=== PATIENT | female | born 1990 | race Two or more races ===

== ENCOUNTER 2017-07-14 19:26 | Emergency (ER) | payer MEDICAID ==
[~2017-07-14] VITALS: Ht 185.4 cm; Wt 111.4 kg
[~2017-07-14 19:26] MED LIST: ACET325T14 PO
[2017-07-14 19:37] VITALS: BP 128/88
== END 2017-07-14 20:19 | disposition home or self-care (01) ==
LOC: ED 20:10
DX: B34.9 Viral infection, unspecified (principal); F17.210 Nicotine dependence, cigarettes, uncomplicated
CPT/HCPCS: 71046; 99284

== ENCOUNTER 2017-08-23 15:20 | Emergency (ER) | payer MEDICAID ==
[~2017-08-23] VITALS: Ht 185.4 cm; Wt 104.2 kg
[2017-08-23 15:30] VITALS: BP 124/83
[2017-08-23 16:48] LABS: CULTURE INDICATED? YES; MICROSCOPIC INDICATED
[2017-08-23 16:51] LABS: HCG UR SG 1.006 (1.003-1.030)
== END 2017-08-23 17:31 | disposition home or self-care (01) ==
LOC: ED 17:10
DX: N30.91 Cystitis, unspecified with hematuria (principal); F12.10 Cannabis abuse, uncomplicated; Z88.0 Allergy status to penicillin
CPT/HCPCS: 81001; 81025; 87086; 87147; 87491; 87591; 99284

== ENCOUNTER 2017-10-24 19:18 | Emergency (ER) | payer MEDICAID ==
[~2017-10-24] VITALS: Ht 185.4 cm; Wt 103.0 kg
[2017-10-24 19:31] VITALS: BP 120/80
== END 2017-10-24 20:12 | disposition left against medical advice (07) ==
LOC: ED 20:06
DX: O20.9 Hemorrhage in early pregnancy, unspecified (principal); Z53.21 Procedure and treatment not carried out due to patient leaving prior to being seen by health care provider